=== PATIENT | male | born 1985 ===

== ENCOUNTER 2018-05-23 10:17 | Outpatient (CLI) | payer OTHER ==
[~2018-05-23] VITALS: Ht 165.1 cm; Wt 53.5 kg
== END 2018-05-23 10:35 | disposition home or self-care (01) ==
LOC: OFIC 805 10:17
DX: J30.89 Other allergic rhinitis (principal); Q38.3 Other congenital malformations of tongue; R09.82 Postnasal drip; G50.1 Atypical facial pain